=== PATIENT | female | born 1965 | race Hispanic/Latino ===

== ENCOUNTER 2017-12-28 11:06 | Emergency (ER) | payer OTHER ==
[2017-12-28] MEDS ORDERED: DUONEB *Not for PRN Use IH ONE ×2 (11:16)
--- NOTE | 2017-12-28 11:26 | Emergency Department Report ---
ED Shortness of Breath HPI - General Chief Complaint: Adult Asthma Stated Complaint: ISAMAR Time Seen by Provider: 12/28/17 11:26 Source: patient Mode of arrival: Stretcher Limitations: No Limitations - History of Present Illness MD Complaint: shortness of breath, chest pain -: Sudden Radiation: back Severity: severe Pain Scale: 9 Quality: sharp Consistency: constant Improves With: nothing Worsens With: nothing Known History Of: asthma Associated Symptoms: sputum production Treatments Prior to Arrival: oxygen, bronchodilator - Related Data Previous Rx's Medication Instructions Recorded Last Taken Type Benzonatate [Tessalon Perles] 100 mg PO Q8HR PRN 7 Days #20 12/28/17 Unknown Rx capsule Levofloxacin [Levaquin] 750 mg PO QDAY 10 Days #10 tablet 12/28/17 Unknown Rx predniSONE [Deltasone] 60 mg PO DAILY #5 tablet 12/28/17 Unknown Rx Allergies Allergy/AdvReac Type Severity Reaction Status Date / Time Penicillins Allergy Unknown Verified 12/28/17 11:14 ED Review of Systems ROS: Stated complaint: ISAMAR Other details as noted in HPI Comment: All other systems reviewed and negative Constitutional: denies: chills, diaphoresis, fever Eyes: denies: eye pain ENT: denies: throat pain Respiratory: cough, shortness of breath Cardiovascular: chest pain, palpitations Endocrine: no symptoms reported Gastrointestinal: denies: abdominal pain, nausea, vomiting, diarrhea Genitourinary: denies: urgency, dysuria, frequency Musculoskeletal: denies: back pain, joint swelling Skin: denies: rash, change in color Neurological: denies: headache, numbness, paresthesias Psychiatric: anxiety. denies: auditory hallucinations Hematological/Lymphatic: denies: easy bleeding, easy bruising ED Past Medical Hx - Past Medical History Previous Medical History?: Yes Hx Asthma: Yes - Surgical History Past Surgical History?: Yes Additional Surgical History: c section - Social History Smoking Status: Current Every Day Smoker Substance Use Type: Alcohol - Medications Home Medications: Home Medications Medication Instructions Recorded Confirmed Last Taken Type Benzonatate [Tessalon Perles] 100 mg PO Q8HR PRN 7 Days #20 12/28/17 Unknown Rx capsule Levofloxacin [Levaquin] 750 mg PO QDAY 10 Days #10 tablet 12/28/17 Unknown Rx predniSONE [Deltasone] 60 mg PO DAILY #5 tablet 12/28/17 Unknown Rx ED Physical Exam - General Limitations: No Limitations General appearance: anxious, in distress - Head Head exam: Present: atraumatic, normocephalic, normal inspection - Eye Eye exam: Present: normal appearance, PERRL, EOMI Pupils: Present: normal accommodation - ENT ENT exam: Present: normal exam, normal orophraynx, mucous membranes moist - Neck Neck exam: Present: normal inspection, full ROM - Respiratory Respiratory exam: Present: wheezes. Absent: stridor, chest wall tenderness - Cardiovascular Cardiovascular Exam: Present: tachycardia, normal heart sounds - GI/Abdominal GI/Abdominal exam: Present: soft, normal bowel sounds. Absent: tenderness, guarding - Extremities Exam Extremities exam: Present: normal inspection, full ROM, normal capillary refill - Back Exam Back exam: Present: normal inspection, full ROM. Absent: CVA tenderness (L) - Neurological Exam Neurological exam: Present: alert, oriented X3, CN II-XII intact - Psychiatric Psychiatric exam: Present: normal affect, anxious - Skin Skin exam: Present: warm, dry, intact, normal color. Absent: rash ED Course Vital Signs 12/28/17 12/28/17 12/28/17 11:10 11:16 11:22 Temperature 99.1 F Pulse Rate 116 H Pulse Rate [ 114 H Anterior Bilateral Throughout] Respiratory 21 Rate Respiratory 24 Rate [Anterior Bilateral Throughout] Blood Pressure 87/57 Blood Pressure [Left] O2 Sat by Pulse 98 99 Oximetry 12/28/17 12/28/17 12/28/17 11:30 11:42 11:46 Temperature Pulse Rate 118 H 113 H Pulse Rate [ 111 H Anterior Bilateral Throughout] Respiratory 24 22 Rate Respiratory 24 Rate [Anterior Bilateral Throughout] Blood Pressure 100/55 100/55 Blood Pressure [Left] O2 Sat by Pulse 100 99 Oximetry 12/28/17 12/28/17 12/28/17 12:00 12:01 12:16 Temperature Pulse Rate 112 H 100 H Pulse Rate [ Anterior Bilateral Throughout] Respiratory 24 24 20 Rate Respiratory Rate [Anterior Bilateral Throughout] Blood Pressure 108/67 92/75 Blood Pressure 108/67 [Left] O2 Sat by Pulse 82 L 100 100 Oximetry 12/28/17 12/28/17 12/28/17 12:30 12:46 13:00 Temperature Pulse Rate Pulse Rate [ Anterior Bilateral Throughout] Respiratory Rate Respiratory Rate [Anterior Bilateral Throughout] Blood Pressure 108/67 108/67 115/62 Blood Pressure [Left] O2 Sat by Pulse 100 100 100 Oximetry 12/28/17 12/28/17 13:16 13:30 Temperature Pulse Rate Pulse Rate [ Anterior Bilateral Throughout] Respiratory 24 Rate Respiratory Rate [Anterior Bilateral Throughout] Blood Pressure 117/63 117/63 Blood Pressure [Left] O2 Sat by Pulse 100 100 Oximetry - Reevaluation(s) Reevaluation #1: 12/28/17 14:30 Patient is feeling much better and asthma exacerbation has resolved. She wants to go home. ED Medical Decision Making - Lab Data Result diagrams: 12/28/17 11:33 12/28/17 11:33 - EKG Data -: EKG Interpreted by Wa EKG shows normal: sinus rhythm Rate: tachycardia - EKG Data Interpretation: nonspecific ST-T wave ganesh, other (No STEMI) - Radiology Data Radiology results: report reviewed, image reviewed Critical care attestation.: If time is entered above; I have spent that time in minutes in the direct care of this critically ill patient, excluding procedure time. ED Disposition Clinical Impression: Bronchitis Asthma exacerbation Qualifiers: Asthma severity: mild Asthma persistence: unspecified Qualified Code(s): J45.901 - Unspecified asthma with (acute) exacerbation Disposition: DC-01 TO HOME OR SELFCARE Is pt being admited?: No Does the pt Need Aspirin: Yes Condition: Stable Instructions: Chronic Bronchitis (ED) Additional Instructions: Please follow up with her primary doctor on Dr. Canales if you do not have a primary doctor. Return to the emergency room if her condition worsens. Prescriptions: Benzonatate [Tessalon Perles] 100 mg PO Q8HR PRN 7 Days #20 capsule PRN Reason: Cough Levofloxacin [Levaquin] 750 mg PO QDAY 10 Days #10 tablet predniSONE [Deltasone] 60 mg PO DAILY #5 tablet Referrals: PRIMARY CARE, [Primary Care Provider] - 3-5 Days MADYSON CANALES MD [Staff Physician] - 3-5 Days Time of Disposition: 14:50
[2017-12-28] MEDS ORDERED: NACL 0.9% 1000 ML 1,000 ML IV ONE (11:27)
[2017-12-28] MEDS ORDERED: LEVAQUIN 750MG/150ML 750 MG/150 ML BAG IV ONE (11:27)
[2017-12-28] MEDS ORDERED: ATIVAN PO ONE (11:28)
[2017-12-28] MEDS ORDERED: BABY ASPIRIN PO ONE (11:48)
[2017-12-28 11:54] LABS: Basophils # (Auto) 0.1 K/mm3 (0.0-0.1); Basophils % (Auto) 0.6 % (0.0-1.8); Eosinophils # (Auto) 0.1 K/mm3 (0.0-0.4); Eosinophils % (Auto) 1.1 % (0.0-4.3); Hematocrit 47.9 % (30.3-42.9); Hemoglobin 16.7 gm/dl (10.1-14.3); Lymphocytes # (Auto) 1.5 K/mm3 (1.2-5.4); Lymphocytes % (Auto) 14.7 % (13.4-35.0); Mean Corpuscular HGB Conc 35 % (30-34); Mean Corpuscular Hemoglobin 35 pg (28-32); Mean Corpuscular Volume 99 fl (79-97); Monocytes # (Auto) 0.6 K/mm3 (0.0-0.8); Monocytes % (Auto) 6.1 % (0.0-7.3); Platelet Count 325 K/mm3 (140-440); Red Blood Count 4.83 M/mm3 (3.65-5.03); Red Cell Distribution Width 14.8 % (13.2-15.2)
[2017-12-28 12:01] LABS: Alanine Aminotransferase 18 units/L (7-56); Albumin 4.9 g/dL (3.9-5); BUN/Creatinine Ratio 17; Blood Urea Nitrogen 15 mg/dL (7-17); Calcium 10.3 mg/dL (8.4-10.2); Hemolysis Index 15
--- NOTE | 2017-12-28 12:33 | XRay Report ---
AP CHEST: HISTORY: Shortness of breath No comparison. The left hemidiaphragm is elevated by 1-2 rib levels compared to the right side. Minor atelectasis or scarring is noted at the left lung base. Otherwise, the lungs are clear. No pleural effusion or pneumothorax. Normal heart size. Previous internal fixation of right lateral ribs 6 and 7 is noted. IMPRESSION: Elevated left hemidiaphragm. No acute cardiopulmonary process identified.
--- NOTE | 2017-12-28 14:23 | Cat Scan Report ---
CTA CHEST: HISTORY: Shortness of breath. COMPARISON: none. TECHNIQUE: Helical CT in 1.25mm intervals following IV contrast. Pulmonary embolus protocol. Sagittal and coronal reformatted images. Rotational MIP images. FINDINGS: Contrast bolus is satisfactory. No pulmonary embolus is identified. Thyroid gland: Normal. Tracheobronchial tree: Normal. Esophagus: Normal. Heart: Normal. Pericardium: Normal. Mediastinum: Normal. Lung Motley: Well-aerated. Calcified granuloma in the right upper lobe is noted. There is no evidence for pneumonia or CHF. The left hemidiaphragm is elevated or eventrated. There is minor scarring in the lingula. Pleural Spaces: Normal. Musculoskeletal: The right lateral sixth and seventh ribs have been previously internally fixated. Healing fractures are identified involving ribs 7 and 8. IMPRESSION: No pulmonary embolus is identified. Elevated left hemidiaphragm. Healing right lateral seventh and eighth rib fractures.
[2017-12-28 14:43] VITALS: BP 117/63
== END 2017-12-28 15:40 | disposition home or self-care (01) ==
LOC: ED 11:06
DX: J40 Bronchitis, not specified as acute or chronic (principal); J45.901 Unspecified asthma with (acute) exacerbation; F17.200 Nicotine dependence, unspecified, uncomplicated; Z88.0 Allergy status to penicillin
CPT/HCPCS: 36415; 71045; 71275; 80053; 82803; 84484; 85025; 85379; 93005; 93010; 94640; 96365; 96375; 99285; J1956; J2930; J7030; Q9967

== ENCOUNTER 2018-01-21 16:37 | Emergency (ER) | payer SELFPAY ==
--- NOTE | 2018-01-21 17:06 | Emergency Department Report ---
Chief Complaint: Abdominal Pain Stated Complaint: ABDOMINAL/BACK PAIN Time Seen by Provider: 01/21/18 16:58 - HPI History of Present Illness: 52-year-old female presents to the emergency department with complaint of a one-day history of abdominal pain, nausea, vomiting and diarrhea. The diarrhea has been so bad that she has incontinence. The vomitus and diarrhea are both black. She says she has a history of ulcers. She denies any fever. She has not taken anything for her symptoms prior to presentation. - ROS Review of Systems: Positive for abdominal pain, nausea, vomiting, diarrhea, hematemesis, melena Negative for shortness of breath, fever, dysuria, vaginal bleeding - Exam Vital Signs: Vital Signs 01/21/18 01/21/18 16:41 16:56 Temperature 98.4 F Pulse Rate 109 H Respiratory 18 18 Rate Blood Pressure 102/65 O2 Sat by Pulse 96 Oximetry Physical Exam: Patient appears uncomfortable. She is awake and alert. Heart and lung sounds are normal to auscultation. Hyperactive bowel sounds. MSE screening note: Focused history and physical exam performed. Due to findings the following was ordered: The patient will have a CBC, CMP, lipase, coags, urinalysis. We will place an IV. She will start off with an x-ray/acute abdominal series. The patient will need to be seen on the main side. ED Disposition for MSE Condition: Stable Instructions: Abdominal Pain (ED)
[2018-01-21 17:35] LABS: Bilirubin,Urine NEG (Negative); Blood,Urine NEG (Negative); Color,Urine Yellow (Yellow); Hyaline Casts,Urine 7 /LPF; Mucus,Urine FEW /HPF; Protein,Urine <15 mg/dL mg/dL (Negative); Urobilinogen,Urine < 2.0 mg/dL (<2.0)
[2018-01-21] MEDS ORDERED: PROTONIX IV ONE (18:07)
[2018-01-21] MEDS ORDERED: ZOFRAN IV ONE (18:07)
[2018-01-21] MEDS ORDERED: NACL 0.9% 1000 ML 1,000 ML IV ONE (18:08)
[2018-01-21] MEDS ORDERED: MORPHINE IV ONE (18:08)
--- NOTE | 2018-01-21 18:14 | Emergency Department Report ---
ED Abdominal Pain HPI - General Chief Complaint: Abdominal Pain Stated Complaint: ABDOMINAL/BACK PAIN Time Seen by Provider: 01/21/18 16:58 Source: patient, EMS Mode of arrival: Ambulatory Limitations: No Limitations - History of Present Illness Initial Comments: 52-year-old female with past medical history peptic ulcer disease treated surgically in the past, diverticulosis, asthma, right rib surgery status post trauma presents to the hospital with complaints of vomiting blood, blood in stool, abdominal pain, and uncontrollable diarrhea with incontinence. Patient states the past 2 days she has had black/coffee-ground emesis. She has also had multiple episodes of black stool. She had 3 episodes of vomiting today and an uncountable amount of diarrhea. Patient states she is having fecal incontinence due to the amount of diarrhea. She complains of 10/10 right lower , right upper, and epigastric pain that is constant, worse palpation, without alleviating factors. Patient just recently moved here to the [facility] 9 weeks ago and does not have any local physicians or specialist. She takes Aleve on occasion (denies other NSAID or ASA use), recently drank alcohol to "help with the pain" but states she typically drinks alcohol once a week and denies daily use. She is taking [id number] acid glass calibrator and Nexium. - Related Data Previous Rx's Medication Instructions Recorded Last Taken Type Benzonatate [Tessalon Perles] 100 mg PO Q8HR PRN 7 Days #20 12/28/17 Unknown Rx capsule Levofloxacin [Levaquin] 750 mg PO QDAY 10 Days #10 tablet 12/28/17 Unknown Rx predniSONE [Deltasone] 60 mg PO DAILY #5 tablet 12/28/17 Unknown Rx HYDROcodone/APAP 5-325 [Racine 1 each PO Q6HR PRN #14 tablet 01/21/18 Unknown Rx 5/325] Loperamide [Imodium] 2 mg PO Q2HR PRN #20 capsule 01/21/18 Unknown Rx Omeprazole Magnesium [PriLOSEC Otc] 20 mg PO BID #60 tab 01/21/18 Unknown Rx Ondansetron [Zofran Odt] 4 mg PO Q8HR PRN #20 tab.rapdis 01/21/18 Unknown Rx Allergies Allergy/AdvReac Type Severity Reaction Status Date / Time Penicillins Allergy Unknown Verified 12/28/17 11:14 ED Review of Systems ROS: Stated complaint: ABDOMINAL/BACK PAIN Other details as noted in HPI Comment: All other systems reviewed and negative ED Past Medical Hx - Past Medical History Hx Asthma: Yes Additional medical history: peptic ulcers,diverticulosis - Surgical History Additional Surgical History: c section//bleeding ulcers. right rib surgery s/p trauma - Social History Smoking Status: Current Every Day Smoker Substance Use Type: Alcohol - Medications Home Medications: Home Medications Medication Instructions Recorded Confirmed Last Taken Type Benzonatate [Tessalon Perles] 100 mg PO Q8HR PRN 7 Days #20 12/28/17 Unknown Rx capsule Levofloxacin [Levaquin] 750 mg PO QDAY 10 Days #10 tablet 12/28/17 Unknown Rx predniSONE [Deltasone] 60 mg PO DAILY #5 tablet 12/28/17 Unknown Rx HYDROcodone/APAP 5-325 [Racine 1 each PO Q6HR PRN #14 tablet 01/21/18 Unknown Rx 5/325] Loperamide [Imodium] 2 mg PO Q2HR PRN #20 capsule 01/21/18 Unknown Rx Omeprazole Magnesium [PriLOSEC Otc] 20 mg PO BID #60 tab 01/21/18 Unknown Rx Ondansetron [Zofran Odt] 4 mg PO Q8HR PRN #20 tab.rapdis 01/21/18 Unknown Rx ED Physical Exam - General Limitations: No Limitations - Other Other exam information: General: No limitations, patient is alert in no acute distress Head exam: Atraumatic, normocephalic Eyes exam: Normal appearance, nonicteric sclera ENT: Moist mucous membrane, normal oropharynx Neck exam: Normal inspection, full range of motion, no meningismus nontender Respiratory exam: Clear to auscultation bilateral, no wheezes, rales, crackles Cardiovascular: Normal rate and rhythm, normal heart sounds Abdomen: Soft, nondistended, hyperactive bowel, generalized abdominal tenderness greatest in the right lower, right upper, mid epigastric area. Rebound and guarding Rectal: Guaiac negative brown stool with brown stool noted in the underwear. Extremity: Full range of motion normal inspection no deformity Back: Normal Inspection, full range of motion, no tenderness Neurologic: Alert, oriented x3, cranial nerves intact, no motor or sensory deficit Psychiatric: normal affect, normal mood Skin: Warm, dry, intact ED Course Vital Signs 01/21/18 01/21/18 01/21/18 16:41 16:56 18:14 Temperature 98.4 F Pulse Rate 109 H 94 H Respiratory 18 18 13 Rate Blood Pressure 102/65 112/64 O2 Sat by Pulse 96 Oximetry 01/21/18 01/21/18 01/21/18 18:16 18:30 18:46 Temperature Pulse Rate 91 H 87 90 Respiratory 21 25 H 12 Rate Blood Pressure 112/64 103/63 94/62 O2 Sat by Pulse 97 Oximetry 01/21/18 01/21/18 01/21/18 19:00 19:16 19:30 Temperature Pulse Rate 87 90 90 Respiratory 12 19 12 Rate Blood Pressure 94/62 94/62 101/33 O2 Sat by Pulse 97 96 Oximetry - Consultations Consultation #1: 01/21/18 22:16 case d/w DR Hill, f/u recommended ED Medical Decision Making - Lab Data Result diagrams: 01/21/18 18:23 01/21/18 18:23 Lab Results 01/21/18 01/21/18 01/21/18 Range/Units 18:23 18:23 18:23 WBC 6.1 (4.5-11.0) K/mm3 RBC 4.08 (3.65-5.03) M/mm3 Hgb 13.7 (10.1-14.3) gm/dl Hct 41.5 (30.3-42.9) % MCV 102 H (79-97) fl MCH 34 H (28-32) pg MCHC 33 (30-34) % RDW 14.4 (13.2-15.2) % Plt Count 256 (140-440) K/mm3 Lymph % (Auto) 19.8 (13.4-35.0) % [place] % (Auto) 9.3 H (0.0-7.3) % Eos % (Auto) 1.8 (0.0-4.3) % Baso % (Auto) 1.2 (0.0-1.8) % Lymph # 1.2 (1.2-5.4) K/mm3 [place] # 0.6 (0.0-0.8) K/mm3 Eos # 0.1 (0.0-0.4) K/mm3 Baso # 0.1 (0.0-0.1) K/mm3 Seg Neutrophils % 67.9 (40.0-70.0) % Seg Neutrophils # 4.2 (1.8-7.7) K/mm3 PT 12.9 (12.2-14.9) Sec. INR 0.93 (0.87-1.13) APTT 27.2 (24.2-36.6) Sec. Sodium 137 (137-145) mmol/L Potassium 4.0 (3.6-5.0) mmol/L Chloride 101.3 (98-107) mmol/L Carbon Dioxide 20 L (22-30) mmol/L Anion Gap 20 mmol/L BUN 9 (7-17) mg/dL Creatinine 0.8 (0.7-1.2) mg/dL Estimated GFR > 60 ml/min BUN/Creatinine Ratio 11 % Glucose 97 (65-100) mg/dL Calcium 9.5 (8.4-10.2) mg/dL Total Bilirubin 0.30 (0.1-1.2) mg/dL AST 20 (5-40) units/L ALT 20 (7-56) units/L Alkaline Phosphatase 99 (35-129) units/L Troponin T (0.00-0.029) ng/mL Total Protein 6.7 (6.3-8.2) g/dL Albumin 4.7 (3.9-5) g/dL Albumin/Globulin Ratio 2.4 % Lipase 45 (13-60) units/L Urine Color (Yellow) Urine Turbidity (Clear) Urine pH (5.0-7.0) Ur Specific [place] (1.003-1.030) Urine Protein (Negative) mg/dL Urine Glucose (UA) (Negative) mg/dL Urine Ketones (Negative) mg/dL Urine Blood (Negative) Urine Nitrite (Negative) Urine Bilirubin (Negative) Urine Urobilinogen (<2.0) mg/dL Ur Leukocyte Esterase (Negative) Urine WBC (Auto) (0.0-6.0) /HPF Urine RBC (Auto) (0.0-6.0) /HPF U Epithel Cells (Auto) (0-13.0) /HPF Hyaline Casts /LPF Urine Mucus /HPF Urine Opiates Screen Urine Methadone Screen Ur Barbiturates Screen Ur Phencyclidine Scrn Ur Amphetamines Screen U Benzodiazepines Scrn Urine Cocaine Screen U Marijuana (THC) Screen Drugs of Abuse Note 01/21/18 01/21/18 01/21/18 Range/Units 18:23 Unknown Unknown WBC (4.5-11.0) K/mm3 RBC (3.65-5.03) M/mm3 Hgb (10.1-14.3) gm/dl Hct (30.3-42.9) % MCV (79-97) fl MCH (28-32) pg MCHC (30-34) % RDW (13.2-15.2) % Plt Count (140-440) K/mm3 Lymph % (Auto) (13.4-35.0) % [place] % (Auto) (0.0-7.3) % Eos % (Auto) (0.0-4.3) % Baso % (Auto) (0.0-1.8) % Lymph # (1.2-5.4) K/mm3 [place] # (0.0-0.8) K/mm3 Eos # (0.0-0.4) K/mm3 Baso # (0.0-0.1) K/mm3 Seg Neutrophils % (40.0-70.0) % Seg Neutrophils # (1.8-7.7) K/mm3 PT (12.2-14.9) Sec. INR (0.87-1.13) APTT (24.2-36.6) Sec. Sodium (137-145) mmol/L Potassium (3.6-5.0) mmol/L Chloride (98-107) mmol/L Carbon Dioxide (22-30) mmol/L Anion Gap mmol/L BUN (7-17) mg/dL Creatinine (0.7-1.2) mg/dL Estimated GFR ml/min BUN/Creatinine Ratio % Glucose (65-100) mg/dL Calcium (8.4-10.2) mg/dL Total Bilirubin (0.1-1.2) mg/dL AST (5-40) units/L ALT (7-56) units/L Alkaline Phosphatase (35-129) units/L Troponin T < 0.010 (0.00-0.029) ng/mL Total Protein (6.3-8.2) g/dL Albumin (3.9-5) g/dL Albumin/Globulin Ratio % Lipase (13-60) units/L Urine Color Yellow (Yellow) Urine Turbidity Clear (Clear) Urine pH 5.0 (5.0-7.0) Ur Specific [place] 1.019 (1.003-1.030) Urine Protein <15 mg/dl (Negative) mg/dL Urine Glucose (UA) Neg (Negative) mg/dL Urine Ketones Neg (Negative) mg/dL Urine Blood Neg (Negative) Urine Nitrite Neg (Negative) Urine Bilirubin Neg (Negative) Urine Urobilinogen < 2.0 (<2.0) mg/dL Ur Leukocyte Esterase Tr (Negative) Urine WBC (Auto) 2.0 (0.0-6.0) /HPF Urine RBC (Auto) 5.0 (0.0-6.0) /HPF U Epithel Cells (Auto) 14.0 H (0-13.0) /HPF Hyaline Casts 7 /LPF Urine Mucus Few /HPF Urine Opiates Screen Presumptive negative Urine Methadone Screen Presumptive negative Ur Barbiturates Screen Presumptive negative Ur Phencyclidine Scrn Presumptive negative Ur Amphetamines Screen Presumptive negative U Benzodiazepines Scrn Presumptive negative Urine Cocaine Screen Presumptive negative U Marijuana (THC) Screen Presumptive negative Drugs of Abuse Note Disclamer - Radiology Data Radiology results: report reviewed Abdominal series x-ray with chest x-ray one view: Focal area of atelectasis or scarring at the left lung base Surgical plates bridging remote right rib fracture Mild small bowel prominent nonspecific bowel gas pattern. Probable mild generalized ileus, partial early small bowel obstruction cannot be excluded ct abd/pelvis po and iv contrast Small peripheral areas of decreased density of the over the liver. Suspect this is from focal fatty infiltration. Nonspecific elevation of left diaphragm. Mild colonic diverticulosis without evidence of diverticulitis. No acute abnormality. Old post surgical changes from fixation procedure noted involving the right ribs. - Medical Decision Making differential hepatitis Despite patient's complaint of vomiting blood and melena she has brown stool on exam is guaiac negative. She has normal H&H, coags, and BUN therefore, conflicting with her history of reported melena and coffee ground emesis. CT pelvis did not show any abnormalities. Although patient has had pain during the visit she has not had any vomiting since initial medication doses. Case discussed with GI doctor. Patient be discharged home on medications for pain and nausea and to continue her current H2 robles PPI. His appointment and patient follow up with your doctor for further workup and evaluation. Imodium given prior to d/c - Differential Diagnosis dehydration, anemia, pud, diverticulosis, cancer, ascites, pancreatitis Critical Care Time: No Critical care attestation.: If time is entered above; I have spent that time in minutes in the direct care of this critically ill patient, excluding procedure time. ED Disposition Clinical Impression: Abdominal pain, Gastroenteritis Disposition: TO HOME OR SELFCARE Is pt being admited?: No Does the pt Need Aspirin: No Condition: Stable Instructions: Gastroenteritis (ED), Abdominal Pain (ED) Additional Instructions: Take the medication as prescribed. Return is symptoms worsen as indicated by your discharge instructions. Follow up with the primary care doctor/GI doctor provided with the GI doctor/primary care doctor. Prescriptions: HYDROcodone/APAP 5-325 [Racine 5/325] 1 each PO Q6HR PRN #14 tablet PRN Reason: Pain Loperamide [Imodium] 2 mg PO Q2HR PRN #20 capsule PRN Reason: Diarrhea Omeprazole Magnesium [PriLOSEC Otc] 20 mg PO BID #60 tab Ondansetron [Zofran Odt] 4 mg PO Q8HR PRN #20 tab.rapdis PRN Reason: Nausea And Vomiting Referrals: CARMELA HILL MD [Staff Physician] - 3-5 Days (GI) ROCIO BENSON MD [Staff Physician] - 3-5 Days (Primary care doctor ) [facility] [Provider Group] - 3-5 Days (Primary care clinc ) Time of Disposition: 22:55
[2018-01-21 18:32] LABS: Amphetamine Screen,Urine PRESUMPTIVE NEGATIVE; Benzodiazepines Screen,Urine PRESUMPTIVE NEGATIVE; Cannabinoid Screen,Urine PRESUMPTIVE NEGATIVE; Cocaine Screen,Urine PRESUMPTIVE NEGATIVE; Methadone Screen,Urine PRESUMPTIVE NEGATIVE; Opiate Screen,Urine PRESUMPTIVE NEGATIVE
[2018-01-21 18:46] LABS: Basophils # (Auto) 0.1 K/mm3 (0.0-0.1); Basophils % (Auto) 1.2 % (0.0-1.8); Eosinophils # (Auto) 0.1 K/mm3 (0.0-0.4); Eosinophils % (Auto) 1.8 % (0.0-4.3); Hematocrit 41.5 % (30.3-42.9); Hemoglobin 13.7 gm/dl (10.1-14.3); Lymphocytes # (Auto) 1.2 K/mm3 (1.2-5.4); Lymphocytes % (Auto) 19.8 % (13.4-35.0); Mean Corpuscular HGB Conc 33 % (30-34); Mean Corpuscular Hemoglobin 34 pg (28-32); Mean Corpuscular Volume 102 fl (79-97); Monocytes # (Auto) 0.6 K/mm3 (0.0-0.8); Monocytes % (Auto) 9.3 % (0.0-7.3); Platelet Count 256 K/mm3 (140-440); Red Blood Count 4.08 M/mm3 (3.65-5.03); Red Cell Distribution Width 14.4 % (13.2-15.2)
[2018-01-21 18:57] LABS: INR 0.93 (0.87-1.13)
[2018-01-21 18:58] LABS: Partial Thromboplastin Time 27.2 Sec. (24.2-36.6)
[2018-01-21 19:06] LABS: Alanine Aminotransferase 20 units/L (7-56); Albumin 4.7 g/dL (3.9-5); BUN/Creatinine Ratio 11; Blood Urea Nitrogen 9 mg/dL (7-17); Calcium 9.5 mg/dL (8.4-10.2); Hemolysis Index 10; Lipase 45 units/L (13-60)
[2018-01-21] MEDS ORDERED: DILAUDID IV ONE ×2 (19:56→22:21)
[2018-01-21] MEDS ORDERED: ZOFRAN ONE (21:37)
[2018-01-21 22:20] VITALS: BP 101/33
[2018-01-21] MEDS ORDERED: IMODIUM PO ONE (22:54)
--- NOTE | 2018-01-22 14:30 | XRay Report ---
FINAL REPORT EXAM: XR ABD SERIES W CXR 1V HISTORY: abd pain TECHNIQUE: Abdominal series supine and upright with frontal view of the chest PRIORS: None. FINDINGS: Surgical plates bridge remote healed right-sided lower rib fractures. There is linear opacity at the left lung base most consistent with an area of atelectasis or scarring. There is some mild diffuse small-bowel distention probable ileus however partial obstruction cannot be excluded continued followup recommended. There is a moderate amount of stool and gas throughout the colon. There are no signs for free air. IMPRESSION: Focal area of atelectasis or scarring at the left lung base Surgical plates bridging remote right healed rib fractures Mild small bowel prominence nonspecific bowel gas pattern. Probable mild generalized ileus however partial or early small-bowel obstruction cannot be excluded. Continued followup recommended.
--- NOTE | 2018-01-22 14:31 | Cat Scan Report ---
FINAL REPORT PROCEDURE: CT ABDOMEN PELVIS W CON TECHNIQUE: Computerized axial tomography of the abdomen and pelvis was performed after the IV injection of iodinated nonionic contrast. HISTORY: epigastic, right side pain, n,v, diarrhea COMPARISON: No prior studies are available for comparison. FINDINGS: Lower Lung [place]: Postsurgical changes seen involving several ribs on the right. Small amount of dependent atelectasis visualized. Upper Abdomen: There is a 7 millimeter area of decreased density at edge of the left lobe of the liver posteriorly superior aspect of the katharine hepatis. This is nonspecific although may represent a focal area of fatty infiltration. Similar finding is seen along the right side of the falciform ligament anteriorly extending over approximately 7 millimeters. The liver is otherwise unremarkable. The adrenal glands, the gallbladder, the pancreas and the spleen are unremarkable. Visualization of the spleen is limited. The superior aspect is not included. Left diaphragm is elevated. Portion of the stomach is also not included on this exam. Kidneys, Ureters and Urinary bladder: Kidneys appears slightly lobulated, normal variant. The kidneys, the ureters and urinary bladder are otherwise unremarkable. Retroperitoneum: Atherosclerotic changes are seen in the abdominal aorta and iliac arteries. No aneurysm is visualized. Nonspecific subcentimeter lymph nodes are seen in the retroperitoneum. No pathologically enlarged lymph nodes are identified. Bowel: Mild diverticulosis is seen in the left side of the colon. No evidence of diverticulitis. There are few scattered diverticuli also seen in the transverse colon. Bowel loops otherwise unremarkable. Normal-appearing appendix is seen in the right lower quadrant. Reproductive organs: Uterus and adnexa are unremarkable. Other: No acute bony abnormalities are seen. There is some spatial misregistration of the pelvis on the reconstructed images secondary to motion. IMPRESSION: Small peripheral areas of decreased density left lobe of the liver as described. I suspect these represent focal fatty infiltration. The liver is otherwise unremarkable. Nonspecific elevation left diaphragm. Mild colonic diverticulosis without evidence of diverticulitis. No acute abnormalities are identified. Old postsurgical changes from fixation procedure noted involving right ribs.
== END 2018-01-21 23:36 | disposition home or self-care (01) ==
LOC: ED 16:37
DX: K52.9 Noninfective gastroenteritis and colitis, unspecified (principal); J45.909 Unspecified asthma, uncomplicated; F17.200 Nicotine dependence, unspecified, uncomplicated; Z88.0 Allergy status to penicillin; Z79.899 Other long term (current) drug therapy
CPT/HCPCS: 36415; 74022; 74177; 80053; 80307; 81001; 82271; 83690; 84484; 85025; 85610; 85730; 93005; 93010; 96361; 96374; 96375; 96376; 99285; C9113; J1170; J2270; J2405; J7030; Q9967

== ENCOUNTER 2018-01-22 02:16 | Emergency (ER) | payer SELFPAY ==
[2018-01-22 02:23] VITALS: BP 119/77
[2018-01-22] MEDS ORDERED: NACL 0.9% 1000 ML 1,000 ML IV ONE (02:44)
[2018-01-22 03:21] LABS: Hematocrit 42.9 % (30.3-42.9); Hemoglobin 14.1 gm/dl (10.1-14.3); Mean Corpuscular HGB Conc 33 % (30-34); Mean Corpuscular Hemoglobin 35 pg (28-32); Mean Corpuscular Volume 105 fl (79-97); Platelet Count 239 K/mm3 (140-440); Red Blood Count 4.09 M/mm3 (3.65-5.03); Red Cell Distribution Width 15.7 % (13.2-15.2)
[2018-01-22 03:35] LABS: Alanine Aminotransferase 21 units/L (7-56); Albumin 4.6 g/dL (3.9-5); BUN/Creatinine Ratio 13; Blood Urea Nitrogen 8 mg/dL (7-17); Hemolysis Index 27; Lipase 29 units/L (13-60)
[2018-01-22 04:13] LABS: INR 0.92 (0.87-1.13); Partial Thromboplastin Time 26.8 Sec. (24.2-36.6)
== END 2018-01-22 09:31 | disposition left against medical advice (07) ==
LOC: ED 02:16
DX: R10.9 Unspecified abdominal pain (principal); Z53.21 Procedure and treatment not carried out due to patient leaving prior to being seen by health care provider
CPT/HCPCS: 36415; 80053; 83690; 85025; 85610; 85730; 86850; 86900; 86901; 93005; 93010

== ENCOUNTER 2018-01-24 00:15 | Emergency (ER) | payer SELFPAY ==
[2018-01-24 03:27] LABS: Alanine Aminotransferase 19 units/L (7-56); Albumin 4.2 g/dL (3.9-5); BUN/Creatinine Ratio 13; Blood Urea Nitrogen 8 mg/dL (7-17); Calcium 8.8 mg/dL (8.4-10.2); Hemolysis Index 4; Lipase 40 units/L (13-60)
[2018-01-24 03:35] LABS: Basophils # (Auto) 0.1 K/mm3 (0.0-0.1); Eosinophils # (Auto) 0.1 K/mm3 (0.0-0.4); Hematocrit 40.6 % (30.3-42.9); Hemoglobin 13.3 gm/dl (10.1-14.3); Lymphocytes # (Auto) 1.4 K/mm3 (1.2-5.4); Lymphocytes % (Auto) 25.5 % (13.4-35.0); Mean Corpuscular HGB Conc 33 % (30-34); Mean Corpuscular Hemoglobin 34 pg (28-32); Mean Corpuscular Volume 102 fl (79-97); Monocytes # (Auto) 0.5 K/mm3 (0.0-0.8); Monocytes % (Auto) 8.7 % (0.0-7.3); Platelet Count 251 K/mm3 (140-440); Red Blood Count 3.99 M/mm3 (3.65-5.03); Red Cell Distribution Width 14.7 % (13.2-15.2)
[2018-01-24 04:41] LABS: Bilirubin,Urine NEG (Negative); Blood,Urine NEG (Negative); Color,Urine Yellow (Yellow); Hyaline Casts,Urine 1 /LPF; Mucus,Urine FEW /HPF; Protein,Urine <15 mg/dL mg/dL (Negative); Urobilinogen,Urine < 2.0 mg/dL (<2.0); WBC,Urine < 1.0 /HPF (0.0-6.0)
--- NOTE | 2018-01-24 10:09 | Emergency Department Report ---
Blank Doc - Documentation Documentation: 52-year-old female with a past medical history asthma, kidney stones, peptic ulcer disease requiring multiple surgeries, and diverticulosis presents to Hospital with complaints of continued epigastic abdominal pain, nausea, vomiting , and diarrhea. Patient was seen by myself on January 21 for the same. Guaiac was negative with brown, H&H and other labs normal, and CT abdomen and pelvis was unremarkable. Patient left prior to receiving discharge papers with IV in place. As per med record patient represented to the ER on the 01/22 with same pain but left prior to M.D. evaluation. She was here today stating that she continues to drink alcohol for the last 3 days to make the pain go away. Patient now states that she tried to drink enough so she will wake up and has been feeling suicidal today. Labs reviewed with stable H&H despite patient continued claim a black stool. She will be transferred to the main side for evaluation, medical clearance, and psychiatric evaluation Additional labs ordered, urine drug screen, alcohol, aspirin, Tylenol
[2018-01-24 11:14] LABS: Amphetamine Screen,Urine PRESUMPTIVE NEGATIVE; Benzodiazepines Screen,Urine PRESUMPTIVE NEGATIVE; Cannabinoid Screen,Urine PRESUMPTIVE NEGATIVE; Cocaine Screen,Urine PRESUMPTIVE NEGATIVE; Methadone Screen,Urine PRESUMPTIVE NEGATIVE; Opiate Screen,Urine PRESUMPTIVE NEGATIVE
--- NOTE | 2018-01-24 11:43 | Emergency Department Report ---
HPI - General Chief Complaint: Abdominal Pain Time Seen by Provider: 01/24/18 09:53 - HPI HPI: Room 18 The patient is a 52 y/o F p/w a cc of Suicidal Ideation and overdose. The patient states the anniversary of her daughter is upcoming leading to suicidal ideation. The patient states she's felt suicidal for the past 2-3 days. The patient states she took ~12 Tylenol PM yesterday afternoon. The patient states he is uncertain of the exact time she ingested the Tylenol PM. Patient denies other coingestions except for alcohol. The patient states she is working on her third pint of alcohol since yesterday. Location: Mental state Duration: [See above] Quality: Suicidal Severity: Severe Modifying factors: [see above] Context: [see above] Mode of transportation: [not driving] ED Past Medical Hx - Past Medical History Previous Medical History?: Yes Hx Kidney Stones: Yes Hx Asthma: Yes Additional medical history: peptic ulcers,diverticulosis - Surgical History Past Surgical History?: Yes Additional Surgical History: c section//bleeding ulcers. right rib surgery s/p trauma. removal left ovary - Family History Family history: no significant - Social History Smoking Status: Heavy Tobacco Smoker (2 packs per day) Substance Use Type: None (denies illicit drug use), Alcohol (on average 1/2 pint per day) - Medications Home Medications: Home Medications Medication Instructions Recorded Confirmed Last Taken Type Benzonatate [Tessalon Perles] 100 mg PO Q8HR PRN 7 Days #20 12/28/17 Unknown Rx capsule Levofloxacin [Levaquin] 750 mg PO QDAY 10 Days #10 tablet 12/28/17 Unknown Rx predniSONE [Deltasone] 60 mg PO DAILY #5 tablet 12/28/17 Unknown Rx HYDROcodone/APAP 5-325 [[place] 1 each PO Q6HR PRN #14 tablet 01/21/18 Unknown Rx 5/325] Loperamide [Imodium] 2 mg PO Q2HR PRN #20 capsule 01/21/18 Unknown Rx Omeprazole Magnesium [PriLOSEC Otc] 20 mg PO BID #60 tab 01/21/18 Unknown Rx Ondansetron [Zofran Odt] 4 mg PO Q8HR PRN #20 tab.rapdis 01/21/18 Unknown Rx ED Review of Systems ROS: Stated complaint: EPIGASTRIC PAIN Other details as noted in HPI Psychiatric: suicidal thoughts Physical Exam - Physical Exam Vital Signs: Vital Signs 01/24/18 01/24/18 01/24/18 02:06 09:14 11:11 Temperature 98.2 F 98.3 F Pulse Rate 88 101 H 98 H Respiratory 17 15 22 Rate Blood Pressure 124/71 Blood Pressure 119/73 135/76 [Right] O2 Sat by Pulse 97 96 Oximetry Physical Exam: GENERAL: The patient is well-developed well-nourished female appearing tearful lying on stretcher. [] HEENT: Normocephalic. Atraumatic. Extraocular motions are intact. Patient has moist mucous membranes. NECK: Supple. Trachea midline CHEST/LUNGS: Clear to auscultation. There is no respiratory distress noted. HEART/CARDIOVASCULAR: Regular. There is no tachycardia. There is no gallop rub or murmur. ABDOMEN: Abdomen is soft, with discomfort to palpation in the right upper and right lower quadrant (patient states this is her chronic pain for years) patient has normal bowel sounds. There is no abdominal distention. SKIN: There is no rash. There is no edema. There is no diaphoresis. NEURO: The patient is awake, alert, and oriented. The patient is cooperative. The patient has normal speech MUSCULOSKELETAL: There is no evidence of acute injury. ED Course Vital Signs 01/24/18 01/24/18 01/24/18 02:06 09:14 11:11 Temperature 98.2 F 98.3 F Pulse Rate 88 101 H 98 H Respiratory 17 15 22 Rate Blood Pressure 124/71 Blood Pressure 119/73 135/76 [Right] O2 Sat by Pulse 97 96 Oximetry - Consultations Consultation #1: 01/24/18 11:45 Poison control called-discuss case with Jayne who discussed case with embedded linux engineer Dr. Murdock. Recommends repeating Tylenol level now and observing for 6 hours. If INR is normal and repeat Tylenol level decreasing patient may be cleared ED Medical Decision Making - Lab Data Result diagrams: 01/24/18 02:52 01/24/18 02:52 - EKG Data -: EKG Interpreted by Me EKG shows normal: sinus rhythm Rate: normal - EKG Data When compared to previous EKG there are: no significant change Interpretation: unchanged when compared t (01/22/2018), other (QRS 86.) - Differential Diagnosis suicidal ideation Critical care attestation.: If time is entered above; I have spent that time in minutes in the direct care of this critically ill patient, excluding procedure time. ED Disposition Clinical Impression: Suicidal ideation, Intentional drug overdose, Alcohol abuse Disposition: [id number] PSY HOSP/PSY UNIT Is pt being admited?: No Does the pt Need Aspirin: No Condition: Serious Instructions: Abdominal Pain (ED) Referrals: PRIMARY CARE, [Primary Care Provider] - 3-5 Days Time of Disposition: 14:01 (awaiting acceptance)
[2018-01-24 12:02] LABS: INR 0.88 (0.87-1.13)
[2018-01-24 12:03] LABS: Partial Thromboplastin Time 23.5 Sec. (24.2-36.6)
[2018-01-24] MEDS ORDERED: VITAMIN B-1 100 MG, FOLVITE 1 MG, INFUVITE 10 ML in NACL 0.9% 1000 ML 1,000 ML IV ONE (15:00)
[2018-01-24] MEDS ORDERED: MAGNESIUM SULFATE 2GM/50ML 2 GM/50 ML BAG IV SCH (15:00)
[2018-01-24] MEDS ORDERED: VITAMIN B-1 100 MG, FOLVITE 1 MG, INFUVITE 10 ML, MAGNESIUM SULFATE 2 GM in NACL 0.9% 1... IV ONE (15:00)
[2018-01-24] MEDS ORDERED: HABITROL TD ONE (16:08)
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
[2018-01-25] MEDS: VISTARIL PO SCH ×2 (17:00→22:00)
[2018-01-25] MEDS ORDERED: HABITROL TD ONE (17:57)
[2018-01-25 19:03] LABS: Alanine Aminotransferase 19 units/L (7-56)
[2018-01-25] MEDS: REMERON PO SCH (22:00)
[2018-01-26] MEDS: VISTARIL PO SCH ×2 (10:28→21:59)
[2018-01-26] MEDS: REMERON PO SCH (21:59)
[2018-01-27] MEDS: HABITROL TD SCH ×2 (00:25→11:50)
[2018-01-27] MEDS: VISTARIL PO SCH ×2 (10:08→20:30)
--- NOTE | 2018-01-27 15:25 | Progress Note ---
Subjective - Reason for Consult Consult date: 01/27/18 Reason for consult: Psychiatric Follow-up Evaluation - Chief Complaint Chief complaint: "Still depressed." Patient is a 52 year old white female that presents to the emergency room for suicidal ideations with an attempt to overdose on Tylenol PM pills. Today the patient is calm, but anxious during the assessment. She reports " The Remeron calms my thoughts but I'm still anxious." She denies psychosis. However, she endorses suicidal ideations with a plan to step in front of a semi truck or drink too much. Mental Status Exam - Vital signs Last Vital Signs Temp 98.4 F 01/27/18 10:00 Pulse 83 01/27/18 10:00 Resp 18 01/27/18 12:32 BP 109/62 01/27/18 10:00 Pulse Ox 98 01/27/18 12:32 - Exam Narrative exam: Mental Status Exam: Appearance: Casually dressed, hospital gown Attitude/Behavior: Cooperative Sensorium: Clear Orientation: Alert and oriented x 4 (person, place, time, and situation) Psychomotor and Musculoskeletal Activity: Ambulatory Speech: Regular rate and tone Mood: "Still depressed" Affect: Congruent to mood Thought Process: Circumstantial Thought Content: Reality oriented Perception: Patient denies A/V/T hallucinations Suicidal Ideation/Plan: + Suicidal ideations with plan to walk in front of a semi truck or drink too much Homicidal Ideation/Plan: Patient denies. Insight: Fair Judgment: Variable Assessment and Plan Assessment and plan: Impression: MDD, Severe Type. PTSD. Alcohol Use DO. Today the patient is calm, but anxious during the assessment. Tylenol 5.0 on admission. The patient endorses suicidal ideations with a plan. QTc 446. UDS negative. DDx: R/O Bipolar DO Recommendation/Plan: 1. Continue 1013 with placement to inpatient psychiatric services. 2. Increase Remeron 30 mg PO HS for depression/PTSD and Vistaril 25 mg PO TID for anxiety. 3. Discussed possible suicidality/medication induced tonya reference Remeron. Discussed the importance to abstain from alcohol consumption (etoh). 4. Will continue to monitor mood, sleep, appetite, compliance, and side effects.
[2018-01-27] MEDS: REMERON PO SCH (23:07)
[2018-01-28] MEDS ORDERED: MOTRIN PO ONE (03:50)
[2018-01-28] MEDS ORDERED: XANAX PO ONE (03:51)
[2018-01-28] MEDS: VISTARIL PO SCH ×3 (08:54→20:51)
[2018-01-28] MEDS: HABITROL TD SCH (11:02)
[2018-01-28] MEDS ORDERED: REMERON ONE (21:12)
[2018-01-28] MEDS: REMERON PO SCH (22:26)
[2018-01-29] MEDS ORDERED: LEVOPHED DRIP 4 MG/NS 250 ML 4 MG/250 ML BAG IV ONE (08:36)
[2018-01-29] MEDS: VISTARIL PO SCH ×3 (08:56→21:09)
--- NOTE | 2018-01-29 10:25 | Progress Note ---
Subjective - Reason for Consult Consult date: 01/29/18 Reason for consult: Psychiatry Follow-up - Chief Complaint Chief complaint: "Ye" Patient is a 52 year old white female that presents to the emergency room for suicidal ideations with an attempt to overdose on Tylenol PM pills. Today the patient is calm and cooperative during the assessment. She stated that her SI's has "decreased." She rate her anxiety 4/10, with 10 being the worse. She denies HI's and AVH's. She denies any side effects of her medications. Mental Status Exam - Vital signs Last Vital Signs Temp 97.8 F 01/29/18 08:09 Pulse 80 01/29/18 08:09 Resp 16 01/29/18 08:09 BP 110/67 01/29/18 08:09 Pulse Ox 100 01/29/18 08:09 - Exam Narrative exam: MSE: Appearance: calm, cooperative Behavior: regular eye contact Speech: regular rate and tone Mood: "better" Affect: congruent to mood Thought Process: circumstantial Thought Content: denies HI's and AVH's Motor Activity: lying in bed Cognition: A/O x 3 Insight: fair Judgment: fair Assessment and Plan Impression: MDD, Severe Type. PTSD. Alcohol Use DO. Today the patient is calm and cooperative during the assessment. Tylenol 5.0 on admission. QTc 446. DDx: R/O Bipolar DO Recommendation/Plan: Continue 1013 with placement to inpatient psy services. Continue Remeron 15 mg PO HS for depression/PTSD and Vistaril 25 mg PO TID for anxiety. Discussed possible suicidality/medication induced tonya reference Remeron. Discussed the importance to abstain from alcohol consumption (etoh).
[2018-01-29] MEDS: HABITROL TD SCH (11:00)
[2018-01-29] MEDS ORDERED: REMERON ONE (21:06)
[2018-01-29] MEDS: REMERON PO SCH (21:50)
[2018-01-30] MEDS: VISTARIL PO SCH ×3 (09:05→21:30)
[2018-01-30] MEDS: HABITROL TD SCH (10:07)
--- NOTE | 2018-01-30 10:42 | Progress Note ---
Subjective - Reason for Consult Consult date: 01/30/18 Reason for consult: Psychiatry Follow-up - Chief Complaint Chief complaint: "I feel much better" Patient is a 52 year old white female that presents to the emergency room for suicidal ideations with an attempt to overdose on Tylenol PM pills. Today the patient is calm and cooperative during the assessment. She stated that her actions prior to coming to the ER was not "smart." She stated that she plan to follow up with outpatient psy services once discharged. She denies SI/HI's and AVH's. She denies any side effects of her medications. Mental Status Exam - Vital signs Last Vital Signs Temp 97.9 F 01/30/18 08:06 Pulse 69 01/30/18 08:06 Resp 18 01/30/18 08:06 BP 101/64 01/30/18 08:06 Pulse Ox 98 01/30/18 08:06 - Exam Narrative exam: MSE: Appearance: calm, cooperative Behavior: regular eye contact Speech: regular rate and tone Mood: "okay" Affect: congruent to mood Thought Process: circumstantial Thought Content: denies SI/HI's and AVH's Motor Activity: lying in bed Cognition: A/O x 3 Insight: fair Judgment: fair Assessment and Plan Impression: MDD, Severe Type. PTSD. Alcohol Use DO. Today the patient is calm and cooperative during the assessment. Tylenol 5.0 on admission. The patient is homeless. DDx: R/O Bipolar DO Recommendation/Plan: Evaluate 1013 in 24 hours to determine proper dispo. The patient's 1013 will tomorrow (01/31/2018.) Continue Remeron 15 mg PO HS for depression/PTSD and Vistaril 25 mg PO TID for anxiety. Discussed possible suicidality/medication induced tonya reference Remeron. Discussed the importance to abstain from alcohol consumption (etoh). Case Mgmt involvement once discharged, the patient is homeless.
[2018-01-30] MEDS: REMERON PO SCH (22:28)
[2018-01-31] MEDS: VISTARIL PO SCH ×3 (08:00→20:06)
[2018-01-31] MEDS: HABITROL TD SCH (10:04)
--- NOTE | 2018-01-31 14:02 | Progress Note ---
Subjective - Reason for Consult Consult date: 01/31/18 Reason for consult: Psychiatric Follow-up Evaluation - Chief Complaint Chief complaint: "" Patient is a 52 year old white female that presents to the emergency room for suicidal ideations with an attempt to overdose on Tylenol PM pills. Today the patient is calm, but anxious during the assessment. Mental Status Exam - Vital signs Last Vital Signs Temp 98 F 01/31/18 10:04 Pulse 74 01/31/18 10:04 Resp 18 01/31/18 10:04 BP 89/50 01/31/18 10:04 Pulse Ox 100 01/31/18 10:04 - Exam Narrative exam: Mental Status Exam: Appearance: Casually dressed, hospital gown Attitude/Behavior: Cooperative Sensorium: Clear Orientation: Alert and oriented x 4 (person, place, time, and situation) Psychomotor and Musculoskeletal Activity: Ambulatory Speech: Regular rate and tone Mood: "Still depressed" Affect: Congruent to mood Thought Process: Circumstantial Thought Content: Reality oriented Perception: Patient denies A/V/T hallucinations Suicidal Ideation/Plan: + Suicidal ideations with plan to walk in front of a semi truck or drink too much Homicidal Ideation/Plan: Patient denies. Insight: Fair Judgment: Variable Assessment and Plan Impression: MDD, Severe Type. PTSD. Alcohol Use DO. Today the patient is calm and cooperative during the assessment. Tylenol 5.0 on admission. The patient is homeless. DDx: R/O Bipolar DO Recommendation/Plan: 1. Evaluate 1013 in 24 hours to determine proper dispo. The patient's 1013 will tomorrow (01/31/2018.) 2. Continue Remeron 15 mg PO HS for depression/PTSD and Vistaril 25 mg PO TID for anxiety. Discussed possible suicidality/medication induced tonya reference Remeron. 3. Discussed the importance to abstain from alcohol consumption (etoh). 4. Case Mgmt involvement once discharged, the patient is homeless.
[2018-01-31] MEDS: REMERON PO SCH (22:26)
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
[2018-02-01] MEDS: VISTARIL PO SCH (10:35)
[2018-02-01 11:17] VITALS: BP 123/66
== END 2018-02-01 11:47 | disposition home or self-care (01) ==
LOC: ED 00:15 → EEVIPCON 00:15 → ED 02-01 11:47
DX: T39.1X2A Poisoning by 4-Aminophenol derivatives, intentional self-harm, initial encounter (principal); R10.13 Epigastric pain; F10.10 Alcohol abuse, uncomplicated; F17.200 Nicotine dependence, unspecified, uncomplicated; J45.909 Unspecified asthma, uncomplicated; Z87.442 Personal history of urinary calculi; Z88.0 Allergy status to penicillin; Y92.89 Other specified places as the place of occurrence of the external cause; Y93.89 Activity, other specified; Y99.8 Other external cause status
CPT/HCPCS: 36415; 80053; 80307; 81001; 83690; 84450; 84460; 84703; 85025; 85610; 85730; 93005; 93010; 96365; 96366; 96368; 99285; G0480; J3411; J3475; J7030; 80320; 96367; Q0177